=== PATIENT | male | born 1935 | race Caucasian/White ===

== ENCOUNTER 2022-11-05 14:41 | Emergency (ER) | payer MEDICARE, BC, OTHER ==
[2022-11-05] MEDS ORDERED: cefTRIAXone 1 GM Vial IM ONE (15:18)
[2022-11-05] MEDS ORDERED: Lidocaine 1% 5 ML VIAL INJECT ONE (15:19)
[2022-11-05] MEDS ORDERED: Lidocaine 2% 5 ML SDV INJECT ONE (15:33)
[2022-11-05] MEDS ORDERED: Lidocaine 2% 20 ML MDV INJECT ONE (15:38)
== END 2022-11-05 15:52 | disposition home or self-care (01) ==
LOC: FB.ED 14:41
DX: S51.811A Laceration without foreign body of right forearm, initial encounter (principal); S41.111A Laceration without foreign body of right upper arm, initial encounter; L03.113 Cellulitis of right upper limb; I25.10 Atherosclerotic heart disease of native coronary artery without angina pectoris; I10 Essential (primary) hypertension; Z79.899 Other long term (current) drug therapy; W19.XXXA Unspecified fall, initial encounter
CPT/HCPCS: 96372; 99213; 99283; J0696